=== PATIENT | female | born 1975 | race Caucasian/White ===

== ENCOUNTER 2016-11-22 19:00 | Emergency (ER) | payer MEDICAID ==
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
== END 2016-11-22 20:02 | disposition home or self-care (01) ==
LOC: ER 19:00
DX: S10.93XA Contusion of unspecified part of neck, initial encounter (principal); Y04.8XXA Assault by other bodily force, initial encounter; Y92.009 Unspecified place in unspecified non-institutional (private) residence as the place of occurrence of the external cause